=== PATIENT | female | born 1945 | race Caucasian/White ===

== ENCOUNTER → 2018-02-21 | Outpatient (CLI) | payer MEDICARE, OTHER ==
[~2018-02-21] MED LIST: ASPIRIN81 M2 PO; CLONIDINE HCL0.2 M2 PO; FISH OIL 1,001000 M1 PO; FOLIC ACID1 MG PO; GLIPIZIDE XL10 MG PO; GLUCOPHAGE1000 MG PO; JANUVIA100 MG PO; LANTUSSOLASTAR SQ; LOSARTAN-HCTZ1 EAC2 PO; MULTIVITAMINS PO; PRAVASTATIN SOD20 MG PO; PRIMIDONE50 MG PO; VITAMIN B-12250 MC2 SL; VITAMIN D35000 UNI1 PO
== END ==
LOC: M.RAD 10:40
DX: Z12.31 Encounter for screening mammogram for malignant neoplasm of breast (principal)

== ENCOUNTER → 2019-02-21 | Outpatient (CLI) | payer MEDICARE, OTHER | LOC: M.RAD 13:01 | DX: Z12.31 Encounter for screening mammogram for malignant neoplasm of breast (principal) ==

== ENCOUNTER → 2020-02-18 | Outpatient (CLI) | payer MEDICARE, OTHER | LOC: M.RAD 10:30 | PROVIDERS: ATTEND Family Medicine | DX: Z12.31 Encounter for screening mammogram for malignant neoplasm of breast (principal) ==

== ENCOUNTER → 2021-02-19 | Outpatient (CLI) | payer MEDICARE, OTHER | LOC: M.RAD 10:32 | PROVIDERS: ATTEND Family Medicine | DX: Z12.31 Encounter for screening mammogram for malignant neoplasm of breast (principal) ==